=== PATIENT | female | born 2000 | race African-American/Black ===

== ENCOUNTER 2022-09-15 18:44 | Emergency (ER) | payer OTHER, SELFPAY ==
--- NOTE | ~2022-09-15 | XR_ITS ---
EXAMINATION: XR CHEST CLINICAL INFORMATION: Cough with question of pneumonia COMPARISON: None TECHNIQUE: Frontal view of the chest was obtained. FINDINGS: No significant abnormality is noted involving the heart, lungs, mediastinum, bony thorax or soft tissues. There is mild biconvex thoracolumbar scoliosis. XR/XR chest 1V IMPRESSION: No acute intrathoracic disease.
[2022-09-15 19:19] VITALS: BP 145/89; PULSE 83; RESP 16; TEMP 36.9; O2SAT 98; BMI 28.3
--- NOTE | 2022-09-15 19:22 | ED.URI ---
HPI - URI/Sore Throat General Chief Complaint: General Medical <SUPRIYA Liu - Last Filed: 09/15/22 19:25> Stated Complaint: sore throat,sob <SUPRIYA Liu - Last Filed: 09/15/22 19:25> Time Seen by Provider: 09/15/22 21:30 <SUPRIYA Liu - Last Filed: 09/15/22 19:25> Source: patient <Lili Perez MD - Last Filed: 09/15/22 23:47> Mode of arrival: ambulatory <Lili Perez MD - Last Filed: 09/15/22 23:47> Limitations: no limitations <Lili Perez MD - Last Filed: 09/15/22 23:47> History of Present Illness HPI Narrative: Patient comes to the emergency room complaining of 1 day of sore throat and coughing. Patient states that she coughs so hard this morning that she may have injured her throat and so specks of blood. Patient complaining of subjective fever and chills. Patient states her chest hurts worse when she takes deep inhalations. Otherwise she has no pain. <Lili Perez MD - Last Filed: 09/15/22 23:47> Related Data Home Medications: Previous Rx's Medication Instructions Recorded ibuprofen 600 mg tablet 600 mg PO Q8H PRN fever or pain 09/15/22 #20 tabs nirmatrelvir 300 mg (150 mg See Rx Instructions PO .COMPLEX 09/15/22 x2)-ritonavir 100 mg tablet,dose #30 ea pack(EUA) (Paxlovid) <SUPRIYA Liu - Last Filed: 09/15/22 19:25> Allergies/Adverse Reactions: Allergies Allergy/AdvReac Type Severity Reaction Status Date / Time No Known Allergies Allergy Verified 09/15/22 19:23 <SUPRIYA Liu - Last Filed: 09/15/22 19:25> Review of Systems Review of Systems: Constitutional : No Weight loss, No Fever, No Chills, No Night Sweats, No Fatigue, No Malaise ENT/Mouth : No Hearing loss, No Ear Pain, No Nasal Congestion, No Sinus Pain, No Hoarseness, complaining of sore throat, No Rhinorrhea, No Swallowing Difficulty Eyes: No Eye Pain, No Swelling, No Redness, No Foreign Body, No Discharge, No Vision Changes Cardiovascular : No Chest Pain, No SOB, No Dyspnea on Exertion, No Orthopnea, No Edema, No Palpitations Respiratory : Complaining of Cough, No Sputum, No Wheezing, No Smoke Exposure, No Dyspnea Gastrointestinal : No Nausea, No Vomiting, No Diarrhea, No Constipation, No abdominal Pain, No Hematochezia, No Melena Genitourinary : no irregular bleeding, No Dysuria, No Urinary Frequency, No Hematuria, No Urinary Incontinence, No Urgency, No Flank Pain, No Urinary Flow Changes, No Hesitancy Musculoskeletal : No joint pain, No Myalgias, No Joint Swelling Skin : No Skin Lesions, No rash Neuro : No Weakness, No Numbness, No Paresthesias, No Loss of Consciousness, No Dizziness, No Headache Psych : No Anxiety/Panic, No Depression, No SI/HI/AH/VH, No Social Issues, Heme/Lymph: No Bruising, No Bleeding,No Lymphadenopathy Endocrine : No Polyuria, No Polydipsia, No Temperature Intolerance <Lili Perez MD - Last Filed: 09/15/22 23:47> [facility] Social History Social History: Social History Advance Directives: No Advance Directives Information Provided: Yes <SUPRIYA Liu - Last Filed: 09/15/22 19:25> Physical Exam Vital Signs: Vital Signs: Last Vital Signs Temp 98.5 F 09/15/22 19:19 Pulse 83 09/15/22 19:19 Resp 16 09/15/22 19:19 BP 145/89 H 09/15/22 19:19 Pulse Ox 98 09/15/22 19:19 O2 Del Method 09/15/22 19:19 BMI result Body Mass Index 28.3 <SUPRIYA Liu - Last Filed: 09/15/22 19:25> Vital Signs: Last Vital Signs Temp 98.5 F 09/15/22 19:19 Pulse 83 09/15/22 19:19 Resp 16 09/15/22 19:19 BP 145/89 H 09/15/22 19:19 Pulse Ox 98 09/15/22 19:19 O2 Del Method 09/15/22 19:19 BMI result Body Mass Index 28.3 <Lili Perez MD - Last Filed: 09/15/22 23:47> Const: Other: Appearance: Alert. Oriented X3. No acute distress. Eyes: Pupils equal, round and reactive to light. ENT: Pharynx mildly erythematous, no exudates, no visualize abscess Neck: Normal inspection. Neck supple. No lymph nodes noted. No crepitus CVS: Normal heart rate and rhythm. Pulses normal. Normal S1 and S2 Respiratory: No respiratory distress. Breath sounds normal. No Wheezing. No rales Abdomen: Soft and nontender. No rigidity. No distention. Skin: Skin warm and dry. Normal skin color. Normal skin turgor. Extremities: No lower extremity edema. No Lacerations. No Rash Neuro: Oriented X 3. No motor deficit. No sensory deficit. Moving all extremities. No slurred speech. CN 2 through 12 grossly intact Psych: calm, cooperative, normal affect <Lili Perez MD - Last Filed: 09/15/22 23:47> Course Course Course Narrative: RME-19:24PM - 22yoF presenting to the ER with complaints of chills, fatigue, malaise, body aches, sore throat and a cough with intermittent blood streaked sputum since yesterday worse today. Reports her family has a history of pneumonia. She denies any measured fevers, chest pain or shortness of breath, abdominal pain, vomiting, diarrhea, urinary symptoms or any other symptoms complaints or concerns at this time. Plan: COVID/RSV/flu and rapid strep ordered at this time. Patient will be sent back to the waiting room to be evaluated in [facility]. <SUPRIYA Liu - Last Filed: 09/15/22 19:25> Medications Administered Discontinued Medications Generic Name Dose Route Start Last Admin Trade Name Freq PRN Reason Stop Dose Admin Dexamethasone Sodium Phosphate 6 mg 09/15/22 21:41 09/15/22 21:55 Dexamethasone Sod Phosphate 4 Mg/Ml Vial IVPUSH 09/15/22 21:42 6 mg ONCE ONE Administration Lidocaine HCl 15 ml 09/15/22 21:41 09/15/22 21:55 Lidocaine Hcl Viscous 2 % 15 Ml Solution MUCOUS MEM 09/15/22 21:42 15 ml ONCE ONE Administration <SUPRIYA Liu - Last Filed: 09/15/22 19:25> Medications Administered Discontinued Medications Generic Name Dose Route Start Last Admin Trade Name Freq PRN Reason Stop Dose Admin Dexamethasone Sodium Phosphate 6 mg 09/15/22 21:41 09/15/22 21:55 Dexamethasone Sod Phosphate 4 Mg/Ml Vial IVPUSH 09/15/22 21:42 6 mg ONCE ONE Administration Lidocaine HCl 15 ml 09/15/22 21:41 09/15/22 21:55 Lidocaine Hcl Viscous 2 % 15 Ml Solution MUCOUS MEM 09/15/22 21:42 15 ml ONCE ONE Administration <Lili Perez MD - Last Filed: 09/15/22 23:47> Medical Decision Making Medical Decision Making [facility] Narrative: -serology labs and chest x-ray pending -patient was given 1 dose of p.o. Decadron and viscous lidocaine to help with the symptoms. -patient tested positive for COVID-19 <Lili Perez MD - Last Filed: 09/15/22 23:47> Lab Data [facility] Lab Attestation statement: I reviewed the patient's lab results. <Lili Perez MD - Last Filed: 09/15/22 23:47> Labs: Lab Results 09/15/22 09/15/22 Range/Units 21:38 21:38 Influenza Type A (PCR) NEGATIVE (Negative) Influenza Type B (PCR) NEGATIVE (Negative) RSV RNA Qual (PCR) NEGATIVE (Negative) SARS-CoV-2 RNA (RT-PCR) POSITIVE A (Negative) S. pyogenes GrpA GI Negative (Negative) <SUPRIYA Liu - Last Filed: 09/15/22 19:25> Lab Results 09/15/22 09/15/22 Range/Units 21:38 21:38 Influenza Type A (PCR) NEGATIVE (Negative) Influenza Type B (PCR) NEGATIVE (Negative) RSV RNA Qual (PCR) NEGATIVE (Negative) SARS-CoV-2 RNA (RT-PCR) POSITIVE A (Negative) S. pyogenes GrpA GI Negative (Negative) <Lili Perez MD - Last Filed: 09/15/22 23:47> Independent Interpretation I performed an independent interpretation of an: Plain X-Ray (No acute findings, no consolidations) <Lili Perez MD - Last Filed: 09/15/22 23:47> Radiology Impression Discussion of test interpretation with radiology: I have reviewed the radiologist's reading. <Lili Perez MD - Last Filed: 09/15/22 23:47> Radiologist Impression: No significant abnormality is noted involving the heart, lungs, mediastinum, bony thorax or soft tissues. There is mild biconvex thoracolumbar scoliosis. XR/XR chest 1V IMPRESSION: No acute intrathoracic disease. <Lili Perez MD - Last Filed: 09/15/22 23:47> Discharge Plan Discharge Clinical Impression: COVID-19 <SUPRIYA Liu - Last Filed: 09/15/22 19:25> Patient Disposition: Home, Self-Care <SUPRIYA Liu - Last Filed: 09/15/22 19:25> Instructions: COVID-19 (Coronavirus Disease 2019) (ED) <SUPRIYA Liu - Last Filed: 09/15/22 19:25> Additional Instructions: Please follow-up with your primary care physician tomorrow. If you have any worsening or new symptoms, please return to the emergency room or call 911 <SUPRYIA Liu - Last Filed: 09/15/22 19:25> Prescriptions: New Paxlovid (EUA) 300 mg (150 mg x 2)-100 mg tablets,dose pack See Rx Instructions .ROUTE .COMPLEX Qty: 30 0RF Rx Instructions: take TWO 150 mg tablets of nirmatrelvir with ONE 100 mg tablet of ritonavir twice daily for 5 days ibuprofen 600 mg tablet 600 mg PO Q8H PRN (Reason: fever or pain) Qty: 20 0RF <SUPRIYA Liu - Last Filed: 09/15/22 19:25> Stand Alone Forms: Work/School Release <SUPRIYA Liu - Last Filed: 09/15/22 19:25>
[2022-09-15] MEDS: Lidocaine HCl Viscous 2 % 15 ML SOLUTION MUCOUS MEM (21:55)
[2022-09-15] MEDS: dexAMETHasone sod phosphate 4 MG/ML VIAL 6 MG IVPUSH (21:55)
[2022-09-15 22:02] LABS: IDNOW Serial# 6674DD1D; Strep A Nucleic Acid Negative (Negative)
[2022-09-15 22:31] LABS: Influenza A PCR NEGATIVE (Negative); Influenza B PCR NEGATIVE (Negative); Resp Syncy Virus RNA Qual PCR NEGATIVE (Negative); SARS COV2 PCR INHOUSE POSITIVE (Negative)
== END 2022-09-16 00:07 | disposition home or self-care (01) ==
PROVIDERS: Physician Assistant Medical; Emergency Provider Emergency Medicine
DX: U07.1 COVID-19 (principal); J02.9 Acute pharyngitis, unspecified; R06.02 Shortness of breath; R05.9 Cough, unspecified; M79.10 Myalgia, unspecified site; Z79.899 Other long term (current) drug therapy
CPT/HCPCS: 0241U; 71045; 87651; 99282; 99283; J1100